=== PATIENT | male | born 1995 ===

== ENCOUNTER 2018-05-06 09:53 | Inpatient (IN) | payer OTHER ==
[2018-05-06 10:08] VITALS: BMI 21.3
--- NOTE | 2018-05-06 10:40 | ED PDOC ---
Arrival/HPI <Aakash Terrell - Last Filed: 05/06/18 15:53> - General Historian: Patient, Spouse - History of Present Illness Time/Duration: > month Symptom Onset: Gradual Symptom Course: Intermittent, Worsening Quality: Pressure Severity Level: Moderate <Rob English - Last Filed: 05/06/18 16:37> - General Chief Complaint: Dizziness/Lightheaded Time Seen by Provider: 05/06/18 09:57 - History of Present Illness Narrative History of Present Illness (Text): 05/06/18 10:31 22 year old male, past medical history of cervical stenosis, cervical and lumbar herniated discs, and asthma, presents to the emergency department with headaches, dizziness, and lightheadedness for the past 1 month that has increased in frequency for the past 2 weeks. Patient states he has been having episodes of dizziness sporadically throughout the day with no known triggering events. During these episodes he will start losing his balance and see floaters but has never fallen or lost consciousness. His headaches persist throughout the day and Tylenol has not brought any relief. Patient notes weakening of his lower extremities. He recently had a herpes flare around his left upper lip that is now improving. Denies fever, chills, nausea, vomiting, photophobia, hearing changes, shortness of breath, cough, chest pain, palpitations, abdominal pain, or urinary symptoms. Patient had outpatient labs done by PMD which showed elevated HSV levels, negative HIV. Patient also had an outpatient MRI done that showed multiple nonspecific punctate foci of altered signal scattered throughout the paraventricular and subcortical white matter. PMD: Dr. Wiggins (Rob English) Past Medical History - Provider Review Nursing Documentation Reviewed: Yes - Cardiac Hx Cardiac Disorders: No - Pulmonary Hx Respiratory Disorders: Yes Hx Asthma: Yes - Musculoskeletal/Rheumatological Hx Musculoskeletal Disorders: Yes Hx Arthritis: Yes Other/Comment: cervical stenosis,scoliosis - Psychiatric Hx Psychophysiologic Disorder: Yes Hx Depression: Yes Hx Substance Use: No <Rob English - Last Filed: 05/06/18 16:37> Family/Social History <Aakash Terrell - Last Filed: 05/06/18 15:53> - Physician Review Nursing Documentation Reviewed: Yes Family/Social History: No Known Family HX Smoking Status: Light Smoker < 10 Cigarettes Daily Hx Alcohol Use: No Hx Substance Use: No <Rob English - Last Filed: 05/06/18 16:37> Narrative Family History (Free Text): 05/06/18 10:41 Father had history of spinal stenosis, arthritis (Linda Englishbah) Allergies/Home Meds <Aakash Terrell - Last Filed: 05/06/18 15:53> <Rob English - Last Filed: 05/06/18 16:37> Allergies/Adverse Reactions: Allergies aspirin Allergy (Verified 05/06/18 10:08) ANAPHYLAXIS ibuprofen [From Motrin] Allergy (Verified 05/06/18 10:08) ANAPHYLAXIS meloxicam Allergy (Verified 05/06/18 10:08) ANAPHYLAXIS Home Medications: Home Meds Medication Instructions Recorded Confirmed DULoxetine [Cymbalta] 30 mg PO HS 05/06/18 05/06/18 Gabapentin [Neurontin] 600 mg PO TID 05/06/18 05/06/18 Review of Systems - Physician Review All systems were reviewed & negative as marked: Yes - Review of Systems Constitutional: absent: Fevers Eyes: absent: Vision Changes, Photophobia, Eye Pain ENT: absent: Hearing Changes Respiratory: absent: SOB, Cough Cardiovascular: absent: Chest Pain, Palpitations Gastrointestinal: absent: Abdominal Pain, Nausea, Vomiting Genitourinary Male: absent: Dysuria, Hematuria Musculoskeletal: Back Pain Skin: absent: Rash, Skin Lesions Neurological: Headache, Dizziness, Gait Changes <Rob English - Last Filed: 05/06/18 16:37> Physical Exam Vital Signs Reviewed: Yes Temperature: Afebrile Blood Pressure: Normal Pulse: Tachycardic Respiratory Rate: Normal Appearance: Positive for: Well-Appearing, Non-Toxic, Comfortable Pain Distress: None Mental Status: Positive for: Alert and Oriented X 3 - Systems Exam Head: Present: Atraumatic, Normocephalic Pupils: Present: PERRL Extroacular Muscles: Present: EOMI Conjunctiva: Present: Normal Ears: Present: Normal Mouth: Present: Dry Pharnyx: Present: Normal Nose (External): Present: Atraumatic Nose (Internal): Present: Normal Inspection Neck: No: Meningeal Signs Respiratory/Chest: Present: Clear to Auscultation, Good Air Exchange. No: Respiratory Distress, Accessory Muscle Use Cardiovascular: Present: Regular Rate and Rhythm, Normal S1, S2. No: Murmurs Abdomen: No: Tenderness, Distention, Peritoneal Signs Back: Present: Normal Inspection. No: Paraspinal Tenderness, Pain with Leg Raise Upper Extremity: Present: Normal Inspection, NORMAL PULSES Lower Extremity: Present: Normal Inspection, NORMAL PULSES Neurological: Present: CN II-XII Intact, Speech Normal, Normal Cerebellar Funct , Other (Left Lower extremity and Upper extremity muscle strength 4/5 bilaterally). No: Motor Func Grossly Intact (Left sided weakness in the UE and LE ), Normal Sensory Function (Decreased sensation in the UE and LE), Gait Normal Skin: Present: Warm, Dry, Normal Color. No: Rashes Lymphatic: No: Cervical Adenopathy Psychiatric: Present: Alert, Oriented x 3, Normal Insight, Normal Concentration <Rob English - Last Filed: 05/06/18 16:37> Vital Signs Temp Pulse Resp BP Pulse Ox 05/06/18 15:05 98.2 F 84 19 129/88 97 05/06/18 12:02 86 19 97 05/06/18 10:08 98.2 F 128 H 20 122/76 98 Medical Decision Making - EKG Interpretation Interpreted by ED Physician: Yes <Aakash Terrell - Last Filed: 05/06/18 15:53> <Rob English - Last Filed: 05/06/18 16:37> ED Course and Treatment: 05/06/18 16:04 admit accepted by the hospitalist. patient to be admitted for headache, left sided weakness, delayed presentation which put patient out of the window for thrombolysis. consult accepted by dr. tavarez, neurology, would like the patient to get a repeat mri of the brain with and without contrast, cd4 count, m-protein, crytococcal csf. (Aakash Terrell) 05/06/18 12:11 22M, PMH of scoliosis, cervical stenosis, and cervical and lumbar herniated discs, presents to the ED with worsening headache and dizziness. CBC CMP TSH CT head Acyclovir 600mg Tylenol IVF Neurology called for further evaluation 05/06/18 12:57 CBC, CMP, TSH within normal limits CT head unremarkable 05/06/18 16:34 Spinal tap done at bedside. Spoke with Dr. Tavarez, patient will be admitted for further work up. Patient admitted to hospitalist team. (Rob English) - Lab Interpretations Lab Results: 05/06/18 11:45 05/06/18 11:45 Lab Results 05/06/18 15:50: Fluid Type Spinal fluid, CSF Volume Pending, CSF Appearance Pending, CSF WBC Pending, CSF RBC Pending, CSF Total Cell Counted Pending, CSF Monos/Macrophages Pending, CSF Comment Pending 05/06/18 11:45: TSH 3rd Generation 0.74 05/06/18 11:45: Sodium 140, Potassium 4.1, Chloride 103, Carbon Dioxide 28, Anion Gap 14, BUN 12, Creatinine 0.8, Est GFR ( Amer) > 60, Est GFR (Non- Af Amer) > 60, Random Glucose 88, Calcium 9.9, Phosphorus 2.2 L, Magnesium 2.0, Total Bilirubin 0.3, AST 42, ALT 57 H, Alkaline Phosphatase 81, Total Protein 7.4, Albumin 4.6, Globulin 2.8, Albumin/Globulin Ratio 1.6 05/06/18 11:45: WBC 6.0, RBC 4.87, Hgb 14.8, Hct 43.1, MCV 88.5, MCH 30.4, MCHC 34.3, RDW 12.6, Plt Count 221, MPV 10.8, Gran % 64.3, Lymph % (Auto) 28.5, Braxton % (Auto) 4.7, Eos % (Auto) 2.2, Baso % (Auto) 0.3, Gran # 3.83, Lymph # (Auto) 1.7, Braxton # (Auto) 0.3, Eos # (Auto) 0.1, Baso # (Auto) 0.02 - RAD Interpretation Radiology Orders: 05/06/18 11:06 HEAD W/O CONTRAST [CT] Stat 05/06/18 16:07 BRAIN W & WO CONTRAST [MRI] Stat - EKG Interpretation EKG Interpretation (Text): 05/06/18 11:15 1013: sinus tach at 117 bpm, nml qrs, nml axis, no acute sttw abn (Aakash Terrell) - Medication Orders Current Medication Orders: Discontinued Medications Acetaminophen (Tylenol 325mg Tab) 975 mg PO STAT STA Stop: 05/06/18 12:02 Last Admin: 05/06/18 12:18 Dose: 975 mg MAR Pain/Vitals Document 05/06/18 12:18 [email or web address] (Rec: 05/06/18 12:19 [email or web address] [id number]) Pain Reassessment Is This A Pain ReAssessment? No Sleep Is patient sleeping during reassessment? No Presence of Pain Presence of Pain Yes Pain Scale Used Pain Scale Used Numeric Location Pain Location Body Manager Stone Description Constant Intensity 8 Scale Used Numeric Pain Behavior Facial Grimacing Aggravating Factors Changing Position Alleviating Factors Medication Sodium Chloride (Sodium Chloride 0.9%) 1,000 mls @ 999 mls/hr IV .Q1H1M STA Stop: 05/06/18 12:22 Last Admin: 05/06/18 11:36 Dose: 999 mls/hr eMAR Start Stop Document 05/06/18 11:36 [email or web address] (Rec: 05/06/18 11:36 [email or web address] [id number]) Intravenous Solution Start Date 05/06/18 Start Time 11:36 Acyclovir 600 mg/ Sodium (Chloride) 100 mls @ 100 mls/hr IV ONCE STA PRN Reason: Protocol Stop: 05/06/18 13:02 Last Admin: 05/06/18 13:53 Dose: 100 mls/hr eMAR Start Stop Document 05/06/18 13:53 [email or web address] (Rec: 05/06/18 13:54 [email or web address] [id number]) Intravenous Solution Start Date 05/06/18 Start Time 13:54 Procedures - Time-Out Type of Procedure: Lumbar Puncture <Aakash Terrell - Last Filed: 05/06/18 15:53> - Time-Out Correct Patient (with visual ID + MR# on ID Band): Yes Correct Procedure: Yes Correct Site Marked: Yes Physician Name: Dr. Aakash Terrell <Rob English - Last Filed: 05/06/18 16:37> - Additional Procedures Progress: LUMBAR PUNCTURE Informed written consent obtained , specifically outlining the risks; including infection, headache, bleeding, localized pain and neurologic injury and the benefits and alternatives to the procedure. An opportunity was provided for questions and discussion of all concerns. Using standard, sterile technique the skin and the inter-vertebral space was anesthetized with 5cc 1% lidocaine. 8cc of clear CSF obtained without difficulty. A sterile dressing was applied to puncture site. The patient tolerated the procedure well . CSF samples were sent to the lab for appropriate analysis. (Aakash Terrell) Disposition/Present on Arrival - Present on Arrival Any Indicators Present on Arrival: No - Disposition Have Diagnosis and Disposition been Completed?: Yes Disposition Time: 16:07 Patient Plan: Admission <Aakash Terrell - Last Filed: 05/06/18 15:53> - Present on Arrival Any Indicators Present on Arrival: No History of DVT/PE: No History of Uncontrolled Diabetes: No Urinary Catheter: No History of Decub. Ulcer: No History Surgical Site Infection Following: None - Disposition Have Diagnosis and Disposition been Completed?: Yes Patient Plan: Admission <Rob English - Last Filed: 05/06/18 16:37> - Disposition Diagnosis: Headache Disposition: HOSPITALIZED Patient Problems: Current Active Problems Problem Status Onset Headache Acute Condition: STABLE Referrals: Rosalie Srinivasan MD [Primary Care Provider] - Follow up with primary Forms: [employer] (Lao)
[2018-05-06] MEDS ORDERED: Sodium Chloride 0.9% 1,000 ML IV STA (11:22)
--- NOTE | 2018-05-06 11:38 | CT ---
Date of service: 05/06/2018 PROCEDURE: CT HEAD WITHOUT CONTRAST. HISTORY: headache, dizziness COMPARISON: None available. TECHNIQUE: Axial computed tomography images were obtained through the head/brain without intravenous contrast. Radiation dose: Total exam DLP = 838.18 mGy-cm. This CT exam was performed using one or more of the following dose reduction techniques: Automated exposure control, adjustment of the mA and/or kV according to patient size, and/or use of iterative reconstruction technique. FINDINGS: HEMORRHAGE: No intracranial hemorrhage. BRAIN: Gonzalez-white matter differentiation is preserved. There is no mass, mass effect or abnormal extra-axial fluid collection. There is no territorial infarction. The midline sagittal structures are normal. VENTRICLES: The ventricles are normal in size, shape and configuration. CALVARIUM: The skull base and calvarium are normal. PARANASAL SINUSES: There is abnormal soft-tissue in the sphenoid sinus with aerosolized secretions. There is mild scattered mucosal thickening in the left ethmoid air cells. MASTOID AIR CELLS: Predominantly clear. OTHER FINDINGS: None. IMPRESSION: No acute intracranial abnormality. Acute and/ sphenoid sinusitis. Mild chronic left ethmoid sinusitis. Clinical follow-up is advised.
[2018-05-06 12:16] LABS: BASO # 0.02 K/mm3 (0.0-2.0); BASO % 0.3 % (0.0-3.0); EOS # 0.1 (0.0-0.7); EOS % 2.2 % (1.5-5.0); GRAN # 3.83 (1.4-6.5); GRAN % 64.3 % (50.0-68.0); HEMOGLOBIN 14.8 g/dL (14.0-18.0); LYMPH # 1.7 (1.2-3.4); LYMPH % 28.5 % (22.0-35.0); MEAN CELL VOLUME 88.5 fl (80.0-105.0); MEAN CORPUSCULAR HEMOGLOBIN 30.4 pg (25.0-35.0); MEAN CORPUSCULAR HGB CONC 34.3 g/dl (31.0-37.0); MEAN PLATELET VOLUME 10.8 fl (7.0-11.0); MONO # 0.3 (0.1-0.6); MONO % 4.7 % (1.0-6.0); RBC 4.87 10^6/uL (3.5-6.1); RED CELL DISTRIBUTION WIDTH 12.6 % (11.5-14.5)
[2018-05-06 12:28] LABS: ALB/GLOB RATIO 1.6 (1.1-1.8); ALBUMIN 4.6 g/dL (3.0-4.8); ALT/SGPT 57 U/L (7-56); AST/SGOT 42 U/L (17-59); BLOOD UREA NITROGEN 12 mg/dL (7-21); CALCIUM 9.9 mg/dL (8.4-10.5); GFR NON-AFRICAN AMERICAN > 60
[2018-05-06] MEDS ORDERED: Lidocaine 1% 5ml Abboject IV ONE (15:03)
[2018-05-06 15:51] LABS: FLUID TYPE SPINAL FLUID
[2018-05-06 16:35] LABS: CSF APPEARANCE CLEAR/COLORLESS (CLEAR); CSF VOLUME 2 mL (0-1)
[2018-05-06] MEDS ORDERED: Potassium & Sodium Phosphate PO ONE (17:30)
[2018-05-06] MEDS ORDERED: Gadodiamide 287 MG/ML VIAL (15ML) IV ONE (17:30)
--- NOTE | 2018-05-06 17:41 | CP.PCM.HP ---
<Mushtaq Franco - Last Filed: 05/06/18 21:01> History of Present Illness - History of Present Illness History of Present Illness: Mushtaq Franco, PGY1 H&P for Dr. Goodman. Patient is a 22 y/o M with PMHx of cervical stenosis, cervical/lumbar bulging herniated discs, Asthma, and HSV who presented to the ED on 05/06 for worsening headache and dizziness for the past 2 weeks. Patient said he experienced loss of balance during these episodes but has not fell or lost consciousness. In the ED, Head CT was negative for acute intracranial hemorrhage or bleed. EKG was sinus tachy at 117 bpm. Vital signs were stable. In the ED, patient claimed he had outpatient labs done that indicated an elevated HSV; patient also said that he recently had a cold sore on his lip. LP was done in the ED and neurology was consulted. Patient was then evaluated by the hospitalist team. During interview , patient said that his headache is on both sides and is not exacerbated with bright lights/loud sounds or associated with nausea or vomiting. Patient took Tylenol but it did not help. Patient also mentions weakness in the lower extremities. In regards to his dizziness, patient says that occasionally he feels like the room is spinning. Patient follows up with his Neurologist as outpatient (Dr. Garsia in [facility]) and has an appointment on 05/23. Patient denies chest pain, shortness of breath, abdominal pain, nausea, vomiting, diarrhea. Patient's was present at bedside and claimed that he does have occasional episodes of "zoning out". A full 12 point ROS was conducted and unremarkable except as stated above. PMD: Dr. Wiggins PMHx: cervical stenosis, cervical/lumbar bulging herniated discs, Asthma, and HSV PSHx: denies Meds: gabapentin, muscle relaxant, cymbalta. Allergies: ibuprofen, aspirin, seashell SocialHx: smokes 1 pack every 3 days, denies EtOH use, denies recreational drug use FamHx: non-contributory Present on Admission - Present on Admission Any Indicators Present on Admission: No Review of Systems - Review of Systems All systems: reviewed and no additional remarkable complaints except (as per HPI ) Past Patient History - Past Social History Smoking Status: Light Smoker < 10 Cigarettes Daily - CARDIAC Hx Cardiac Disorders: No - PULMONARY Hx Respiratory Disorders: Yes Hx Asthma: Yes - MUSCULOSKELETAL/RHEUMATOLOGICAL Hx Musculoskeletal Disorders: Yes Hx Arthritis: Yes Other/Comment: cervical stenosis,scoliosis - PSYCHIATRIC Hx Psychophysiologic Disorder: Yes Hx Depression: Yes Hx Substance Use: No - SURGICAL HISTORY Hx Surgeries: No Meds Allergies/Adverse Reactions: Allergies Allergy/AdvReac Type Severity Reaction Status Date / Time aspirin Allergy ANAPHYLAXIS Verified 05/06/18 10:08 ibuprofen [From Motrin] Allergy ANAPHYLAXIS Verified 05/06/18 10:08 meloxicam Allergy ANAPHYLAXIS Verified 05/06/18 10:08 Physical Exam - Constitutional Appears: Well, No Acute Distress - Head Exam Head Exam: ATRAUMATIC, NORMAL INSPECTION, NORMOCEPHALIC - Eye Exam Eye Exam: EOMI, Normal appearance, PERRL - ENT Exam ENT Exam: Mucous Membranes Moist, Normal Exam - Neck Exam Neck exam: Positive for: Full Rom. Negative for: Tenderness Additional comments: No nuchal rigidity on exam. - Respiratory Exam Respiratory Exam: Clear to Auscultation Bilateral, NORMAL BREATHING PATTERN. absent: Rales, Rhonchi, Wheezes - Cardiovascular Exam Cardiovascular Exam: REGULAR RHYTHM, +S1, +S2. absent: Systolic Murmur - GI/Abdominal Exam GI & Abdominal Exam: Normal Bowel Sounds, Soft. absent: Tenderness - Extremities Exam Extremities exam: Positive for: full ROM, normal inspection (5/5 strenght testing in the bilateral lower ext). Negative for: tenderness - Neurological Exam Neurological exam: Alert, CN II-XII Intact, Oriented x3 - Skin Skin Exam: Dry, Intact, Normal Color, Warm Results - Vital Signs Recent Vital Signs: Last Vital Signs Temp 98.2 F 05/06/18 15:05 Pulse 84 05/06/18 15:05 Resp 19 05/06/18 15:05 BP 129/88 05/06/18 15:05 Pulse Ox 97 05/06/18 15:05 - Labs Result Diagrams: 05/06/18 11:45 05/06/18 11:45 Assessment & Plan - Assessment and Plan (Free Text) Assessment: Patient is a 22 y/o M with PMHx of cervical stenosis, cervical/lumbar bulging herniated discs, Asthma, and HSV who presented to the ED on 05/06 for worsening headache and dizziness for the past 2 weeks. Patient follows up extensively with his neurologist. LP in the ED was conducted. Patient is being admitted to the floor for questionable HSV encephalitis. Plan: Headaches, Dizziness, and episodes of AMS 2/2 questionable HSV encephalitis - f/u spinal tap results - Herpes simplex 1/2 labs ordered - ID consulted, f/u recs - Follow up ID recs for continuing with acyclovir - Monitor for neurological changes - As per history, patient claims elevated HSV on outpatient labs and recent sore on lip - HIV test - MRI brain - Cryptococcus Ag - HUSAM - CRP - Hep panel - CT Head: negative for intracranial hemorrhage. Evidence of sinusitis. - Neurology consulted, f/u recs Hypophosphatemia - may contribute to symptoms - Phos was 2.2 - Repleted - f/u repeat labs Cervical stenosis with Cervical/Lumbar Herniated Discs - c/w gabapentin and cymbalta - Patient has chronic history of neuropathy in the extremities Dispo: Patient will be monitored on the floor Case was discussed and reviewed with Dr. Goodman. <Fracisco Goodman - Last Filed: 05/07/18 08:55> Results - Vital Signs Recent Vital Signs: Last Vital Signs Temp 98.6 F 05/07/18 06:00 Pulse 92 H 05/07/18 06:00 Resp 20 05/07/18 06:00 BP 111/73 05/07/18 06:00 Pulse Ox 99 05/07/18 06:00 - Labs Result Diagrams: 05/07/18 07:15 05/07/18 07:15 Labs: Laboratory Results - last 24 hr 05/07/18 05/07/18 07:15 07:15 WBC 8.1 D RBC 4.77 Hgb 14.2 Hct 42.0 MCV 88.1 MCH 29.8 MCHC 33.8 RDW 12.7 Plt Count 204 MPV 10.3 Sodium 139 Potassium 3.9 Chloride 106 Carbon Dioxide 26 Anion Gap 12 BUN 11 Creatinine 0.8 Est GFR ( Amer) > 60 Est GFR (Non-Af Amer) > 60 Random Glucose 96 Calcium 9.3 Phosphorus 4.1 Magnesium 1.7 Total Bilirubin 0.5 AST 33 ALT 48 Alkaline Phosphatase 77 Total Protein 6.7 Albumin 4.1 Globulin 2.6 Albumin/Globulin Ratio 1.5 Attending/Attestation - Attestation I have personally seen and examined this patient.: Yes I have fully participated in the care of the patient.: Yes I have reviewed all pertinent clinical information: Yes Notes (Text): 05/06/18 22 year old male with past medical history of cervical stenosis, cervical/ lumbar bulging herniated discs, asthma and HSV who presented with complaint of headache and dizziness x 2 weeks. Had transient episode of confusion as per partner at bedside as well. CT was negative for acute findings findings except sinusitis. Patient had LP and MRI brain in ER; will follow up on results. Reports recent history of HSV and was given acyclovir in ER. Neurology and ID evaluation were requested; will follow up with recommendations. Will replete and repeat lytes (phosphorous). Fracisco Goodman MD Hospitalist.
--- NOTE | 2018-05-06 20:30 | CARD ---
APPROVED REPORT Date of service: 05/06/2018 EKG Measurement Heart [id number] <Conclusion> Sinus tachycardia Otherwise normal ECG
[2018-05-06] MEDS: cefTRIAXone 2 GM IN NS 2 GM/100 ML BAG IVPB SCH (21:40)
--- NOTE | 2018-05-07 03:48 | CON ---
DATE: 05/06/2018 LOCATION: The patient is seen in 571, bed 1. CHIEF COMPLAINT: Headache x1 month duration. HISTORY OF PRESENT ILLNESS: This is a 22-year-old male who was born in [place] with cervical stenosis, lumbar herniated disc, history of asthma, who is admitted now with headaches x1 month duration. He states that he had seen neurologist, had an MRI as an outpatient which was nonspecific finding. He denies any fevers, any chills. He does have occasional blurred vision. No nausea or vomiting. No chest pain, shortness of breath or cough. No rash. No joint pain. PAST MEDICAL HISTORY: Significant for cervical stenosis, lumbar herniated disc, asthma and depression. PAST SURGICAL HISTORY: Noncontributory. ALLERGIES: THE PATIENT IS ALLERGIC TO ASPIRIN, IBUPROFEN AND MELOXICAM. MEDICATIONS AT HOME: Include the patient to be on Cymbalta and Neurontin. PHYSICAL EXAMINATION: GENERAL: The patient is in bed, awake and alert, answering questions appropriately, nontoxic. VITAL SIGNS: With a temperature of 98, heart rate of 86, respiratory rate of 20, blood pressure is 120/70. HEENT: Unremarkable. The pupils are equal and react to accommodation. Extraocular muscle intact. Conjunctivae is pink. Neck is supple. Oral cavity is within normal limits. LUNGS: Clear. HEART: Normal S1 and S2. ABDOMEN: Soft. SKIN: There is no rashes. LABORATORY EXAMINATION: Reveals a white count of 6000, hemoglobin of 14, platelets of 221. There is 64% granulocytosis. Chemistries reveals a BUN of 12, creatinine of 0.8, phosphorus is 2.2, ALT is 57, alk phos is normal. The patient had a spinal fluid which shows 4 wbc's and 100% lymphocytosis and normal glucose, normal protein and had a MRI of the head, no results are available. CAT scan of the head which was reported to be negative and mild chronic left ethmoid sinusitis and acute sphenoid sinusitis. The patient also had an HIV test 3 months ago which he states, is negative. He lives with his , has two ferrets and he does not use drugs. ASSESSMENT AND PLAN: This is a 22-year-old male who has a history of cervical stenosis, lumbar herniated disc, asthma, depression, homosexual with headaches x1 month, now with acute sphenoid sinusitis. There is no meningitis based on the spinal fluid. I doubt herpes encephalitis. We will check on the MRI and we will order a hepatitis profile. We will order a vasculitis workup, sed rate, C-reactive protein, HUSAM and repeat an HIV test and start the patient on ceftriaxone. I told initial workup negative. May use p.o. Augmentin to complete the sinusitis and follow up rest as an outpatient. We will follow with you. Cabrera Escalera MD
[2018-05-07 07:42] VITALS: RESP 20
[2018-05-07 07:43] LABS: HEMOGLOBIN 14.2 g/dL (14.0-18.0); MEAN CELL VOLUME 88.1 fl (80.0-105.0); MEAN CORPUSCULAR HEMOGLOBIN 29.8 pg (25.0-35.0); MEAN CORPUSCULAR HGB CONC 33.8 g/dl (31.0-37.0); MEAN PLATELET VOLUME 10.3 fl (7.0-11.0); RBC 4.77 10^6/uL (3.5-6.1); RED CELL DISTRIBUTION WIDTH 12.7 % (11.5-14.5); WHITE BLOOD COUNT 8.1 10^3/ul (4.5-11.0)
[2018-05-07 07:58] LABS: BLOOD UREA NITROGEN 11 mg/dL (7-21)
[2018-05-07 07:59] LABS: ALB/GLOB RATIO 1.5 (1.1-1.8); ALBUMIN 4.1 g/dL (3.0-4.8); ALT/SGPT 48 U/L (7-56); AST/SGOT 33 U/L (17-59); CALCIUM 9.3 mg/dL (8.4-10.5); GFR NON-AFRICAN AMERICAN > 60
[2018-05-07] MEDS: cefTRIAXone 2 GM IN NS 2 GM/100 ML BAG IVPB SCH (09:25)
--- NOTE | 2018-05-07 11:16 | MRI ---
Date of service: 05/06/2018 PROCEDURE: MRI BRAIN WITH AND WITHOUT CONTRAST HISTORY: headache COMPARISON: None available. TECHNIQUE: Multiplanar, multisequence MR images of the brain were obtained with and without intravenous contrast enhancement. 15 cc of Omniscan FINDINGS: HEMORRHAGE: None DWI: No evidence of an acute or early subacute infarction. BRAIN PARENCHYMA: No mass,mass effect or edema. Scattered punctate areas of nonspecific increased T2 and FLAIR signal can be seen in the subcortical white matter. ENHANCEMENT: No abnormal intracranial enhancement. VENTRICLES: Unremarkable. No hydrocephalus. CRANIUM: Unremarkable. ORBITS: Grossly unremarkable. PARANASAL SINUSES/MASTOIDS: Clear VASCULAR SYSTEM: Skull base flow voids intact. OTHER FINDINGS: The report concurs with the preliminary [facility] report. IMPRESSION: Unremarkable pre and post contrast enhanced MRI of the brain.
[2018-05-07 12:28] LABS: HEPATITIS B SURFACE AG Negative (NEGATIVE)
[2018-05-07 12:34] LABS: HEPATITIS A IGM NEGATIVE (NEGATIVE); HEPATITIS B CORE AB NEGATIVE (NEGATIVE)
[2018-05-07 12:45] LABS: HEPATITIS C ANTIBODY NEGATIVE (NEGATIVE)
[2018-05-07 16:33] VITALS: BP 124/71; PULSE 103; TEMP 98.5; O2SAT 98
--- NOTE | 2018-05-07 17:14 | CP.PCM.CON ---
History of Present Illness - History of Present Illness History of Present Illness: 22 y rold male with a history of cervical stenosis, who is here for dizziness and headache that has been 8/10, throbbing, localized to posterior occipital region radiating to frontal area, with no photophobia, phonophobia, nausea or vomiting. Lumbar puncture was done, and does not show any signs of meningitis, encephalitis or herpes infection. He is now headache free. DIzziness is described as occuring out of the blue, with a sensation of falling backwards, not associated with positional changes, and not interrupting his sleep. HE denies any recent new medications, head trauma, travel, or infection. Patient's HIV status is negative, and he has no concomitant illnesses. OF note, he follows up with . ROS: no chest pain, nausea, vomiting, dizziness. A full 12 point ROS was conducted and unremarkable except as stated above. PMD: Dr. Wiggins PMHx: cervical stenosis, cervical/lumbar bulging herniated discs, Asthma, and HSV PSHx: denies Meds: gabapentin, muscle relaxant, cymbalta. Allergies: ibuprofen, aspirin, seashell SocialHx: smokes 1 pack every 3 days, denies EtOH use, denies recreational drug use FamHx: non-contributory On exam: NOrmal neurological examination. no ataxia, no dysmetria. Gait normal, rhomberg negative. strength normal, no sensory issues. +2 dtr ul and ll bl. Toes downgoing. No clonus. Past Patient History - Past Social History Smoking Status: Current Some Days Smoker - CARDIAC Hx Cardiac Disorders: No - PULMONARY Hx Asthma: Yes - NEUROLOGICAL Hx Dizziness: Yes - MUSCULOSKELETAL/RHEUMATOLOGICAL Hx Arthritis: Yes Hx Falls: Yes Other/Comment: scoliosis - PSYCHIATRIC Hx Psychophysiologic Disorder: Yes Hx Depression: Yes Hx Substance Use: No - SURGICAL HISTORY Hx Surgeries: No Meds Allergies/Adverse Reactions: Allergies Allergy/AdvReac Type Severity Reaction Status Date / Time aspirin Allergy ANAPHYLAXIS Verified 05/06/18 10:08 ibuprofen [From Motrin] Allergy ANAPHYLAXIS Verified 05/06/18 10:08 meloxicam Allergy ANAPHYLAXIS Verified 05/06/18 10:08 - Medications Medications: Current Medications Acyclovir 750 mg/ Sodium (Chloride) 100 mls @ 100 mls/hr IV Q8 ANNABELLE PRN Reason: Protocol Stop: 05/15/18 18:13 Last Admin: 05/07/18 16:23 Dose: 100 mls/hr Ceftriaxone Sodium (Rocephin 2 Gm Ivpb) 2 gm in 100 mls @ 100 mls/hr IVPB DAILY ANNABELLE PRN Reason: Protocol Stop: 05/15/18 20:16 Last Admin: 05/07/18 09:25 Dose: 100 mls/hr Results - Vital Signs Recent Vital Signs: Last Vital Signs Temp 98.5 F 05/07/18 14:00 Pulse 103 H 05/07/18 14:00 Resp 20 05/07/18 14:00 BP 124/71 05/07/18 14:00 Pulse Ox 98 05/07/18 14:00 - Labs Result Diagrams: 05/07/18 07:15 05/07/18 07:15 Labs: Laboratory Results - last 24 hr 05/06/18 05/07/18 05/07/18 17:53 07:15 07:15 WBC 8.1 D RBC 4.77 Hgb 14.2 Hct 42.0 MCV 88.1 MCH 29.8 MCHC 33.8 RDW 12.7 Plt Count 204 MPV 10.3 ESR 5 Sodium 139 Potassium 3.9 Chloride 106 Carbon Dioxide 26 Anion Gap 12 BUN 11 Creatinine 0.8 Est GFR ( Amer) > 60 Est GFR (Non-Af Amer) > 60 Random Glucose 96 Calcium 9.3 Phosphorus 4.1 Magnesium 1.7 Total Bilirubin 0.5 AST 33 ALT 48 Alkaline Phosphatase 77 C-Reactive Protein < 5.00 Total Protein 6.7 Albumin 4.1 Globulin 2.6 Albumin/Globulin Ratio 1.5 Hepatitis A IgM Ab Hep Bs Antigen Hep B Core IgM Ab Hepatitis C Antibody HIV 1&2 Antibody Screen Negative 05/07/18 07:15 WBC RBC Hgb Hct MCV MCH MCHC RDW Plt Count MPV ESR Sodium Potassium Chloride Carbon Dioxide Anion Gap BUN Creatinine Est GFR ( Amer) Est GFR (Non-Af Amer) Random Glucose Calcium Phosphorus Magnesium Total Bilirubin AST ALT Alkaline Phosphatase C-Reactive Protein Total Protein Albumin Globulin Albumin/Globulin Ratio Hepatitis A IgM Ab Negative Hep Bs Antigen Negative Hep B Core IgM Ab Negative Hepatitis C Antibody Negative HIV 1&2 Antibody Screen Assessment & Plan - Assessment and Plan (Free Text) Assessment: MRI Brain with prudence: normal MRI no lesions noted. A/P: Patient with dizziness that does not have HIV, or intracranial pathology, most likey benign positional vertigo, now resolved. I feel that the bulk of his symptoms are secondary to his cervical stenosis, and his neurontin and flexaril daily use. PLan: 1. VNG outpatient. 2. Vestibular therapy outpatient. 3. May benefit from trigger point injections outpatient basis. THank you for consulting neurology. Dr.Gautami Chen
[2018-05-07 18:04] LABS: % CD4 (T HELPER CELL) 46 Percent (30-61); % CD8 (SUPPRESSOR T CELL) 22 Percent (12-42); ABSOLUTE CD4 CELLS 789 Cells/mcL (490-1740); ABSOLUTE CD8 CELLS 381 Cells/mcL (180-1170); ABSOLUTE LYMPHOCYTES 1699 Cells/mcL (850-3900); HELPER/SUPPRESSOR RATIO 2.07 Ratio (0.86-5.00)
--- NOTE | 2018-05-07 19:00 | CP.PCM.PN ---
Subjective - Date & Time of Evaluation Date of Evaluation: 05/07/18 Time of Evaluation: 12:20 - Subjective Subjective: Comfortable in bed, no fevers, not in distress, headache is much improved. Objective - Vital Signs/Intake and Output Vital Signs (last 24 hours): Temp Pulse Resp BP Pulse Ox 98.5 F 103 H 20 124/71 98 05/07/18 14:00 05/07/18 14:00 05/07/18 14:00 05/07/18 14:00 05/07/18 14:00 Intake and Output: 05/07/18 05/07/18 06:59 18:59 Intake Total 400 Balance 400 - Labs Labs: 05/07/18 07:15 05/07/18 07:15 - Constitutional Appears: No Acute Distress, Chronically Ill - Head Exam Head Exam: NORMAL INSPECTION - Respiratory Exam Respiratory Exam: Decreased Breath Sounds - Cardiovascular Exam Cardiovascular Exam: +S1, +S2 - GI/Abdominal Exam GI & Abdominal Exam: Soft. absent: Tenderness Assessment and Plan - Assessment and Plan (Free Text) Plan: Assessment headache probably due to acute sphenoid sinusitis, clinically improving cervial stenosis lumbar herniated disc asthma depression Plan MRI brain is unremarkable - may d/c Acyclovir currently on Rocephin - can switch to PO augmentin to complete 10 days total therapy patient claims he is allergic to PCN - if he is, may use Levaquin instead reviewed CSF analysis - no inflammation noted, no pleocytosis HIV test is non-reactive
--- NOTE | 2018-05-07 21:58 | CP.PCM.PN ---
Subjective - Date & Time of Evaluation Date of Evaluation: 05/07/18 Time of Evaluation: 08:00 - Subjective Subjective: Pt seen and examined this morning at bedside. Pt reported headache. Objective - Vital Signs/Intake and Output Vital Signs (last 24 hours): Temp Pulse Resp BP Pulse Ox 98.5 F 103 H 20 124/71 98 05/07/18 14:00 05/07/18 14:00 05/07/18 14:00 05/07/18 14:00 05/07/18 14:00 - Labs Labs: 05/07/18 07:15 05/07/18 07:15 - Constitutional Appears: In Acute Distress - ENT Exam ENT Exam: Mucous Membranes Moist - Respiratory Exam Respiratory Exam: Clear to Ausculation Bilateral, NORMAL BREATHING PATTERN. absent: Accessory Muscle Use - Cardiovascular Exam Cardiovascular Exam: REGULAR RHYTHM, +S1, +S2 - GI/Abdominal Exam GI & Abdominal Exam: Soft. absent: Tenderness - Extremities Exam Extremities Exam: Full ROM. absent: Calf Tenderness - Neurological Exam Neurological Exam: Alert, Awake, Oriented x3 - Psychiatric Exam Psychiatric exam: Normal Affect, Normal Mood - Skin Skin Exam: Dry, Normal Color, Warm
--- NOTE | 2018-05-07 22:00 | CP.PCM.DIS ---
<Arthur Molina - Last Filed: 05/07/18 22:11> Provider - Provider Date of Admission: 05/06/18 16:07 Attending physician: Lisa Mcgraw DO Primary care physician: Rosalie Srinivasan MD Consults: neuro ID Time Spent in preparation of Discharge (in minutes): 45 Diagnosis - Discharge Diagnosis (1) Headache Status: Acute Priority: High (2) Dizziness Status: Acute Priority: High Hospital Course - Lab Results Lab Results: Most Recent Lab Values WBC 8.1 10^3/ul (4.5-11.0) D 05/07/18 07:15 RBC 4.77 10^6/uL (3.5-6.1) 05/07/18 07:15 Hgb 14.2 g/dL (14.0-18.0) 05/07/18 07:15 Hct 42.0 % (42.0-52.0) 05/07/18 07:15 MCV 88.1 fl (80.0-105.0) 05/07/18 07:15 MCH 29.8 pg (25.0-35.0) 05/07/18 07:15 MCHC 33.8 g/dl (31.0-37.0) 05/07/18 07:15 RDW 12.7 % (11.5-14.5) 05/07/18 07:15 Plt Count 204 10^3/uL (120.0-450.0) 05/07/18 07:15 MPV 10.3 fl (7.0-11.0) 05/07/18 07:15 Gran % 64.3 % (50.0-68.0) 05/06/18 11:45 Lymph % (Auto) 28.5 % (22.0-35.0) 05/06/18 11:45 Tripp % (Auto) 4.7 % (1.0-6.0) 05/06/18 11:45 Eos % (Auto) 2.2 % (1.5-5.0) 05/06/18 11:45 Baso % (Auto) 0.3 % (0.0-3.0) 05/06/18 11:45 Gran # 3.83 (1.4-6.5) 05/06/18 11:45 Lymph # (Auto) 1.7 (1.2-3.4) 05/06/18 11:45 Tripp # (Auto) 0.3 (0.1-0.6) 05/06/18 11:45 Eos # (Auto) 0.1 (0.0-0.7) 05/06/18 11:45 Baso # (Auto) 0.02 K/mm3 (0.0-2.0) 05/06/18 11:45 ESR 5 mm/hr (0.0-15.0) 05/07/18 07:15 Sodium 139 mmol/L (132-148) 05/07/18 07:15 Potassium 3.9 mmol/L (3.6-5.0) 05/07/18 07:15 Chloride 106 mmol/L (98-107) 05/07/18 07:15 Carbon Dioxide 26 mmol/L (21-33) 05/07/18 07:15 Anion Gap 12 (10-20) 05/07/18 07:15 BUN 11 mg/dL (7-21) 05/07/18 07:15 Creatinine 0.8 mg/dl (0.8-1.5) 05/07/18 07:15 Est GFR ( Amer) > 60 05/07/18 07:15 Est GFR (Non-Af Amer) > 60 05/07/18 07:15 Random Glucose 96 mg/dL (70-110) 05/07/18 07:15 Calcium 9.3 mg/dL (8.4-10.5) 05/07/18 07:15 Phosphorus 4.1 mg/dL (2.5-4.5) 05/07/18 07:15 Magnesium 1.7 mg/dL (1.7-2.2) 05/07/18 07:15 Total Bilirubin 0.5 mg/dL (0.2-1.3) 05/07/18 07:15 AST 33 U/L (17-59) 05/07/18 07:15 ALT 48 U/L (7-56) 05/07/18 07:15 Alkaline Phosphatase 77 U/L (38-126) 05/07/18 07:15 C-Reactive Protein < 5.00 mg/L (0.0-9.9) 05/07/18 07:15 Total Protein 6.7 g/dL (5.8-8.3) 05/07/18 07:15 Albumin 4.1 g/dL (3.0-4.8) 05/07/18 07:15 Globulin 2.6 gm/dL 05/07/18 07:15 Albumin/Globulin Ratio 1.5 (1.1-1.8) 05/07/18 07:15 TSH 3rd Generation 0.74 mIU/mL (0.46-4.68) 05/06/18 11:45 Fluid Type Spinal fluid 05/06/18 15:50 CSF Volume 2 mL (0-1) H 05/06/18 15:50 CSF Appearance Clear/colorless (CLEAR) 05/06/18 15:50 CSF WBC 4.0 /uL (0.0-5.0) 05/06/18 15:50 CSF RBC 7.0 /uL (0.0-0.0) H 05/06/18 15:50 CSF Total Cell Counted 100 (0-0) H 05/06/18 15:50 CSF Neutrophils 0 % (0-0) 05/06/18 15:50 CSF Lymphocytes 100.0 % (0-0) H 05/06/18 15:50 CSF Monos/Macrophages TEST NOT PERFORMED 05/06/18 15:50 CSF Comment Clear 05/06/18 15:50 CSF Glucose 58 mg/dL (40-70) 05/06/18 15:50 CSF Total Protein 26.0 mg/dL (12-60) 05/06/18 15:50 CSF Cryptococcus Ag Not detected (Not Detected) 05/06/18 15:50 Absolute Lymphs (Flow) 1699 Cells/mcL (850-3900) 05/06/18 17:53 % CD4 Cells 46 Percent (30-61) 05/06/18 17:53 Absolute CD4 Count 789 Cells/mcL (490-1740) 05/06/18 17:53 T-Help/Suppress Ratio 2.07 Ratio (0.86-5.00) 05/06/18 17:53 % CD8 Cells 22 Percent (12-42) 05/06/18 17:53 Absolute CD8 Count 381 Cells/mcL (180-1170) 05/06/18 17:53 Hepatitis A IgM Ab Negative (NEGATIVE) 05/07/18 07:15 Hep Bs Antigen Negative (NEGATIVE) 05/07/18 07:15 Hep B Core IgM Ab Negative (NEGATIVE) 05/07/18 07:15 Hepatitis C Antibody Negative (NEGATIVE) 05/07/18 07:15 HIV 1&2 Antibody Screen Negative (NEGATIVE) 05/06/18 17:53 - Hospital Course Hospital Course: Patient is a 22 yo M with PMH of cervical stenosis, cervical/lumbar bulging herniated discs, Asthma, and HSV who presented to the ED on 05/06 for worsening headache and dizziness for the past 2 weeks. Patient said he experienced loss of balance during these episodes but has not fallen or lost consciousness. In the ED, Head CT: negative for acute intracranial hemorrhage or bleed. EKG was sinus tachy at 117 bpm. Vital signs were stable. In the ED, patient claimed he had outpatient labs done that indicated an elevated HSV; patient also said that he recently had a cold sore on his lip. LP was done in the ED and neurology was consulted. Patient was then evaluated by the hospitalist team. During interview , patient said that his headache is on both sides and is not exacerbated with bright lights/loud sounds or associated with nausea or vomiting. Patient took Tylenol but it did not help. Patient also mentions weakness in the lower extremities. In regards to his dizziness, patient says that occasionally he feels like the room is spinning. Patient follows up with his Neurologist as outpatient and has an appointment on 05/23. Patient denies chest pain, shortness of breath, abdominal pain, nausea, vomiting, diarrhea. Patient's was present at bedside and claimed that he does have occasional episodes of "zoning out". Pt was tested and treated during his stay. Neuro evaluated the pt and determined that he should follow up as an out pt. - Date & Time of H&P Date of H&P: 05/07/18 Time of H&P: 08:00 Discharge Exam - Head Exam Head Exam: NORMAL INSPECTION - Eye Exam Eye Exam: EOMI - ENT Exam ENT Exam: Mucous Membranes Moist - Respiratory Exam Respiratory Exam: NORMAL BREATHING PATTERN, UNREMARKABLE - Cardiovascular Exam Cardiovascular Exam: REGULAR RHYTHM, +S1, +S2 - GI/Abdominal Exam GI & Abdominal Exam: Normal Bowel Sounds, Unremarkable - Neurological Exam Neurological exam: Alert - Psychiatric Exam Psychiatric exam: Normal Affect, Normal Mood - Skin Skin Exam: Dry, Intact, Normal Color Discharge Plan - Discharge Medications Prescriptions: Levofloxacin [Levaquin] 500 mg PO DAILY #7 tablet - Follow Up Plan Condition: STABLE Disposition: HOME/ ROUTINE Instructions: Floaters in the Eye, Acute Headache (DC) Additional Instructions: 1. Please continue with your primary care doctor in the next 3-5 days. 2. Please follow up follow up with a neurologist 3. Please return to the ED if your symptoms return or worsen Referrals: Rosalie Srinivasan MD [Primary Care Provider] - <Fracisco Goodman - Last Filed: 05/08/18 08:50> Provider - Provider Date of Admission: 05/06/18 16:07 Attending physician: Lisa Mcgraw DO Primary care physician: Rosalie Srinivasan MD Hospital Course - Lab Results Lab Results: Most Recent Lab Values WBC 8.1 10^3/ul (4.5-11.0) D 05/07/18 07:15 RBC 4.77 10^6/uL (3.5-6.1) 05/07/18 07:15 Hgb 14.2 g/dL (14.0-18.0) 05/07/18 07:15 Hct 42.0 % (42.0-52.0) 05/07/18 07:15 MCV 88.1 fl (80.0-105.0) 05/07/18 07:15 MCH 29.8 pg (25.0-35.0) 05/07/18 07:15 MCHC 33.8 g/dl (31.0-37.0) 05/07/18 07:15 RDW 12.7 % (11.5-14.5) 05/07/18 07:15 Plt Count 204 10^3/uL (120.0-450.0) 05/07/18 07:15 MPV 10.3 fl (7.0-11.0) 05/07/18 07:15 Gran % 64.3 % (50.0-68.0) 05/06/18 11:45 Lymph % (Auto) 28.5 % (22.0-35.0) 05/06/18 11:45 Tripp % (Auto) 4.7 % (1.0-6.0) 05/06/18 11:45 Eos % (Auto) 2.2 % (1.5-5.0) 05/06/18 11:45 Baso % (Auto) 0.3 % (0.0-3.0) 05/06/18 11:45 Gran # 3.83 (1.4-6.5) 05/06/18 11:45 Lymph # (Auto) 1.7 (1.2-3.4) 05/06/18 11:45 Tripp # (Auto) 0.3 (0.1-0.6) 05/06/18 11:45 Eos # (Auto) 0.1 (0.0-0.7) 05/06/18 11:45 Baso # (Auto) 0.02 K/mm3 (0.0-2.0) 05/06/18 11:45 ESR 5 mm/hr (0.0-15.0) 05/07/18 07:15 Sodium 139 mmol/L (132-148) 05/07/18 07:15 Potassium 3.9 mmol/L (3.6-5.0) 05/07/18 07:15 Chloride 106 mmol/L (98-107) 05/07/18 07:15 Carbon Dioxide 26 mmol/L (21-33) 05/07/18 07:15 Anion Gap 12 (10-20) 05/07/18 07:15 BUN 11 mg/dL (7-21) 05/07/18 07:15 Creatinine 0.8 mg/dl (0.8-1.5) 05/07/18 07:15 Est GFR ( Amer) > 60 05/07/18 07:15 Est GFR (Non-Af Amer) > 60 05/07/18 07:15 Random Glucose 96 mg/dL (70-110) 05/07/18 07:15 Calcium 9.3 mg/dL (8.4-10.5) 05/07/18 07:15 Phosphorus 4.1 mg/dL (2.5-4.5) 05/07/18 07:15 Magnesium 1.7 mg/dL (1.7-2.2) 05/07/18 07:15 Total Bilirubin 0.5 mg/dL (0.2-1.3) 05/07/18 07:15 AST 33 U/L (17-59) 05/07/18 07:15 ALT 48 U/L (7-56) 05/07/18 07:15 Alkaline Phosphatase 77 U/L (38-126) 05/07/18 07:15 C-Reactive Protein < 5.00 mg/L (0.0-9.9) 05/07/18 07:15 Total Protein 6.7 g/dL (5.8-8.3) 05/07/18 07:15 Albumin 4.1 g/dL (3.0-4.8) 05/07/18 07:15 Globulin 2.6 gm/dL 05/07/18 07:15 Albumin/Globulin Ratio 1.5 (1.1-1.8) 05/07/18 07:15 TSH 3rd Generation 0.74 mIU/mL (0.46-4.68) 05/06/18 11:45 Fluid Type Spinal fluid 05/06/18 15:50 CSF Volume 2 mL (0-1) H 05/06/18 15:50 CSF Appearance Clear/colorless (CLEAR) 05/06/18 15:50 CSF WBC 4.0 /uL (0.0-5.0) 05/06/18 15:50 CSF RBC 7.0 /uL (0.0-0.0) H 05/06/18 15:50 CSF Total Cell Counted 100 (0-0) H 05/06/18 15:50 CSF Neutrophils 0 % (0-0) 05/06/18 15:50 CSF Lymphocytes 100.0 % (0-0) H 05/06/18 15:50 CSF Monos/Macrophages TEST NOT PERFORMED 05/06/18 15:50 CSF Comment Clear 05/06/18 15:50 CSF Glucose 58 mg/dL (40-70) 05/06/18 15:50 CSF Total Protein 26.0 mg/dL (12-60) 05/06/18 15:50 CSF Cryptococcus Ag Not detected (Not Detected) 05/06/18 15:50 Absolute Lymphs (Flow) 1699 Cells/mcL (850-3900) 05/06/18 17:53 % CD4 Cells 46 Percent (30-61) 05/06/18 17:53 Absolute CD4 Count 789 Cells/mcL (490-1740) 05/06/18 17:53 T-Help/Suppress Ratio 2.07 Ratio (0.86-5.00) 05/06/18 17:53 % CD8 Cells 22 Percent (12-42) 05/06/18 17:53 Absolute CD8 Count 381 Cells/mcL (180-1170) 05/06/18 17:53 Hepatitis A IgM Ab Negative (NEGATIVE) 05/07/18 07:15 Hep Bs Antigen Negative (NEGATIVE) 05/07/18 07:15 Hep B Core IgM Ab Negative (NEGATIVE) 05/07/18 07:15 Hepatitis C Antibody Negative (NEGATIVE) 05/07/18 07:15 HSV Source Description Fluid 05/07/18 07:15 HIV 1&2 Ag/Ab, 4th Gen Nonreactive (Nonreactive) 05/07/18 07:15 HIV 1&2 Antibody Screen Negative (NEGATIVE) 05/06/18 17:53 Attending/Attestation - Attestation I have personally seen and examined this patient.: Yes I have fully participated in the care of the patient.: Yes I have reviewed all pertinent clinical information, including history, physical exam and plan: Yes Notes (Text): 05/06/18 22 year old male with past medical history of cervical stenosis, cervical/ lumbar bulging herniated discs, asthma and HSV who presented with complaint of headache and dizziness x 2 weeks. Had transient episode of confusion as per partner at bedside as well. CT was negative for acute findings findings except sinusitis. MRI brain was negative. He had LP done in ER. His headache improved the following morning. He was seen by ID who recommended levaquin (? pcn allergy). He was seen by neurology who recommended outpatient VNG / vestibular therapy. Also recommended outpatient follow up in her office for possible trigger point injections. Patient is discharged home to follow up with pmd and neurology. Fracisco Goodman MD Hospitalist.
--- NOTE | 2018-05-08 15:32 | PQF ---
PROVIDER RESPONSE TEXT: Mild, intermittent REVIEWER QUERY TEXT: Asthma Specificity and Type Asthma is documented in the Medical Record. Please specify the type and severity of asthma and indic ate if this is associated with exacerbation or status asthmaticus. Such as: -- Mild intermittent -- Mild persistent -- Moderate persistent -- Severe persistent -- Exercise induced bronchospasm -- Cough variant asthma -- Other, please specify The patient's Clinical Indicators include: Asthma is documented on a number of progress notes. Please specify type and severity, as listed below . Thank you. Query created by: Franchesca Licea on 05/08/2018 3:22 PM Electronically signed by: Fracisco Goodman MD 05/08/2018 3:29 PM
[2018-05-09 21:56] LABS: SPECIMEN SOURCE CSF
== END 2018-05-07 18:37 | disposition home or self-care (01) | DRG 69 ==
LOC: ED 09:53 → ERH 16:07 → 5RSO 17:57
PROVIDERS: ADMIT Hospitalist; ATTEND Hospitalist
DX: J01.30 Acute sphenoidal sinusitis, unspecified (principal); R51 Headache; R42 Dizziness and giddiness; F17.210 Nicotine dependence, cigarettes, uncomplicated; M41.9 Scoliosis, unspecified; M48.02 Spinal stenosis, cervical region; J45.20 Mild intermittent asthma, uncomplicated; M51.26 Other intervertebral disc displacement, lumbar region; Z88.0 Allergy status to penicillin; Z88.6 Allergy status to analgesic agent; F32.89 Other specified depressive episodes; M19.90 Unspecified osteoarthritis, unspecified site; Z88.1 Allergy status to other antibiotic agents; Z87.892 Personal history of anaphylaxis